=== PATIENT | female | born 1985 | race Two or more races ===

== ENCOUNTER 2020-08-04 12:53 | Emergency (ER) | payer OTHER ==
[~2020-08-04] VITALS: Ht 162.6 cm; Wt 55.8 kg
[2020-08-04 13:03] VITALS: BP 117/67
--- NOTE | 2020-08-04 13:09 | NUR ---
SEEN AND EXAMINED BY .
--- NOTE | 2020-08-04 13:44 | NUR ---
PT IS WHEELED TO RADIOLOGY FOR XRAY.
--- NOTE | 2020-08-04 15:15 | NUR ---
Patient discharged to home in stable condition. Written and verbal after care instructions given. Patient verbalizes understanding of instruction.
== END 2020-08-04 15:16 | disposition home or self-care (01) ==
LOC: ER 12:55
DX: M54.2 Cervicalgia (principal); R07.89 Other chest pain; Y08.89XA Assault by other specified means, initial encounter; Y93.89 Activity, other specified; Y92.89 Other specified places as the place of occurrence of the external cause; Y99.8 Other external cause status
CPT/HCPCS: 71045-TC; 72050-TC